=== PATIENT | male | born 1955 | race Hispanic/Latino ===

== ENCOUNTER 2024-06-04 14:23 | Observation (INO) | payer OTHER ==
--- NOTE | 2024-06-04 15:48 | RAD REPORT ---
Procedure: Chest Single View HISTORY: Left arm numbness COMPARISON: 2020 FINDINGS: The lungs appear clear of acute infiltrate. No significant pleural effusion noted. The heart is normal size. IMPRESSION: No acute abnormality is displayed.
[2024-06-04 16:26] LABS: Absolute Eosinophils 0.1 K/uL (0-0.5); Absolute Lymphocytes (CBC) 1.5 K/uL (0.7-4.9); Absolute Monocytes 0.3 K/uL (0.1-1.3); Absolute Neutrophil 2.5 K/uL (1.8-8.0); Eosinophils % 1.4 % (0-4.4); Hematocrit 44.4 % (39.6-49.0); Hemoglobin 14.5 g/dL (13.6-17.9); Lymphocytes % 33.5 % (15.3-44.8); MCH 25.8 pg (27.0-35.0); MCHC 32.6 g/dL (32.0-36.0); MCV 79.1 fL (80-100); MPV 7.8 fL (7.6-11.3); Monocytes % 7.5 % (3.3-12.3); Neutrophils % 56.6 % (41.7-73.7); Nucleated Red Blood Cells % 0.3 % (0-0); Platelets 187 thou/uL (152-406); RBC Red Blood Cell Count 5.61 M/uL (4.33-5.43); Red Cell Distribution Width 17.8 % (12.1-15.2)
[2024-06-04 16:31] LABS: PTT, Activated Partial Thromb 28.3 SECONDS (24.3-36.9); Protime INR 0.98
[2024-06-04 16:37] LABS: Troponin High Sensitivity 9.2 pg/mL (<58.9)
--- NOTE | 2024-06-04 17:26 | RAD REPORT ---
EXAM: CT brain without contrast HISTORY: Left arm numbness COMPARISON: None TECHNIQUE: Multiple contiguous axial images were obtained and a CT of the brain without contrast.. Sagittal and coronal reconstruction performed. Automated exposure control, adjustment of the mA and/or kV according to patient size, and/or iterative reconstruction. Unless otherwise specified, incidental f indings do not require dedicated imaging follow-up FINDINGS: An intracranial bleed is not seen Ventricles are normal caliber No extra-axial fluid collection noted No significant hypodensity within the brain No fluid within the visualized sinuses or mastoids noted. IMPRESSION: No acute intracranial abnormality noted. If the patient's symptoms persist MRI of the brain would be recommended.
--- NOTE | 2024-06-04 17:45 | RAD REPORT ---
EXAMINATION: CTA HEAD CLINICAL INDICATION: Left arm numbness TECHNIQUE: Axial CT images were obtained through the head after 100 cc Isovue-370 intravenous contras t utilizing angiographic protocol with 3D post-processing (maximum intensity projection images, volume rendered images and/or shaded surface rendered images). One or more of the following dose red uction techniques were used: Automated exposure control, adjustment of the mA and/or kV according to patient size, and/or iterative reconstruction. Unless otherwise specified, incidental findings do not require dedicated imaging follow-up. COMPARISON: None FINDINGS: Distal internal carotid, basilar, anterior cerebral, middle cerebral and posterior cerebral arteries do not demonstrate a significant stenosis An aneurysm not noted. No large vessel occlusion IMPRESSION: No acute vascular abnormality displayed
--- NOTE | 2024-06-04 17:49 | RAD REPORT ---
EXAMINATION: Neck Angio CLINICAL INDICATION: Left arm numbness TECHNIQUE: Axial CT images were obtained from the aortic arch to the skull base after intravenous adm inistration of 100 cc Isovue-370 utilizing angiographic protocol. Multiplanar reformats, as well as 3D post-processing (maximum intensity projection images, volume rendered images and/or shaded surface rendered images) were generated and reviewed. One or more of the following dose reduction techniques were used: Automated exposure control, adjustment of the mA and/or kV according to patient size, and/or iterative reconstruction. Unless otherwise specified, incidental findings do not require dedicated imaging follow-up. COMPARISON: No prior exam. FINDINGS: The visualized aortic arch and great vessels do not demonstrate a significant abnormality The common carotid, internal carotid and external carotid arteries appear unremarkable. Right vertebral artery is small. Mild plaque distal vertebral artery. Prominent soft tissue within the mediastinum incompletely evaluated on this exam. Methods for NASCET criteria: Mild stenosis, 0% to 49%; Moderate stenosis 50% to 69%; Severe stenosis, 70% to 99% IMPRESSION: Right vertebral artery is very small. 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 If the patient has had prior imaging this would be helpful comparison. Otherwise, no acute vascular abnormality displayed Prominent soft tissue mediastinum which is incompletely evaluated on this exam. CT scan on another da te with IV contrast would be helpful for further evaluation
--- NOTE | 2024-06-04 18:15 | ER ---
Nurse's Notes [facility] Name: Jose F Monae Age: 68 yrs Sex: Male : 1955 Arrival Date: 06/04/2024 Time: 14:23 Bed 3 Private MD: Diagnosis: Left facial numbness;Left arm numbness Presentation: 06/04 14:27 Chief complaint: Patient states: went to [facility] for few months I have numbness and iw tingling in my fingers and now it's in my chest and numbness on left side of my face today. Coronavirus screen: At this time, the client does not indicate any symptoms associated with coronavirus-19. Ebola Screen: No symptoms or risks identified at this time. Risk Assessment: Do you want to hurt yourself or someone else? Patient reports no desire to harm self or others. 14:27 Method Of Arrival: Wheelchair iw 14:27 Acuity: PABLO 3 iw 16:32 Initial Sepsis Screen: Does the patient meet any 2 criteria? No. Patient's initial tl4 sepsis screen is negative. Does the patient have a suspected source of infection? No. Patient's initial sepsis screen is negative. Onset of symptoms is unknown. Triage Assessment: 16:32 General: Appears in no apparent distress. Behavior is calm, cooperative. Pain: Denies tl4 pain. EENT: No signs and/or symptoms were reported regarding the EENT system. Neuro: Level of Consciousness is awake, alert, obeys commands, Oriented to person, place, time, situation, Director Of Agriculture are equal bilaterally Moves all extremities. Full function Speech is normal, Facial symmetry appears normal, Reports numbness in left hand and left arm. Cardiovascular: Capillary refill < 3 seconds Patient's skin is warm and dry. Respiratory: Airway is patent Respiratory effort is even, unlabored, Respiratory pattern is regular, symmetrical. Historical: - Allergies: 14:28 No Known Allergies; iw - Home Meds: 14:28 pantoprazole 40 mg oral granules delayed release for susp packet daily [Active]; iw - PMHx: 14:28 GERD; iw - PSHx: 14:28 left shoulder; left knee; iw - Immunization history:: Adult Immunizations up to date. - Infectious Disease History:: Denies. - Social history:: Smoking status: Patient denies any tobacco usage or history of. Screenin:17 [facility] ED Fall Risk Assessment (Adult) History of falling in the last 3 months, tm6 including since admission No falls in past 3 months (0 pts) Confusion or Disorientation No (0 pts) Intoxicated or Sedated No (0 pts) Impaired Gait No (0 pts) Mobility Assist Device Used No (0 pt) Altered Elimination No (0 pt) Score/Fall Risk Level 0 - 2 = Low Risk Oriented to surroundings, Maintained a safe environment, Educated pt \T\ family on fall prevention, incl call for assistance when getting out of bed. Abuse screen: Denies threats or abuse. Denies injuries from another. Nutritional screening: No deficits noted. Tuberculosis screening: No symptoms or risk factors identified. 16:31 [place] Swallow Protocol Exclusion Criteria: Exclusion Criteria Result: Proceed Brief tl4 Cognitive Screen What is your name? Normal, Where are you right now? Normal, What year is it? Normal. Oral Mechanism Examination Facial Symmetry: Normal, Motion: Normal, Lip Closure: Normal, Oral Mechanism Result: Normal. 3 oz Water Swallow Challenge: Pt able to drink all water without stopping, coughing, choking or throat clearing: Yes Result: PASS. Assessment: 16:26 General: Appears in no apparent distress. Behavior is calm, cooperative. Pain: Denies tl4 pain. Pain does not radiate. Pain began denies pain. Neuro: Level of Consciousness is awake, alert, obeys commands, Oriented to person, place, time, situation, Reports numbness in left hand and left arm Denies difficulty swallowing, headache. Cardiovascular: Reports numbness in left arm, chest since a couple of weeks. Respiratory: Airway is patent Respiratory effort is even, unlabored, Respiratory pattern is regular, symmetrical, Breath sounds are clear bilaterally. Denies cough, shortness of breath labored breathing. GI: No signs and/or symptoms were reported involving the gastrointestinal system. : No signs and/or symptoms were reported regarding the genitourinary system. EENT: No signs and/or symptoms were reported regarding the EENT system. Derm: No signs and/or symptoms reported regarding the dermatologic system. Musculoskeletal: No signs and/or symptoms reported regarding the musculoskeletal system. 17:22 Reassessment: Patient and/or family updated on plan of care and expected duration. Pain tm6 level reassessed. Patient is alert, oriented x 3, equal unlabored respirations, skin warm/dry/pink. 19:09 Reassessment: Patient and/or family updated on plan of care and expected duration. Pain ha1 level reassessed. Patient is alert, oriented x 3, equal unlabored respirations, skin warm/dry/pink. Patient denies pain at this time. 20:30 Reassessment: Patient appears in no apparent distress at this time. Patient and/or bm8 family updated on plan of care and expected duration. Pain level reassessed. Patient is alert, oriented x 3, equal unlabored respirations, skin warm/dry/pink. Vital Signs: 14:27 BP 139 / 86; Pulse 79; Resp 16; Temp 98; Pulse Ox 96% on R/A; Weight 102.51 kg; Height iw 5 ft. 11 in. ; Pain 0/10; 16:16 BP 132 / 75; Pulse 73; Resp 21; Pulse Ox 97% on R/A; MAP 94 mmHg; tm6 17:21 BP 167 / 95; Pulse 78; Resp 18; Pulse Ox 97% on R/A; MAP 113 mmHg; tm6 19:09 BP 144 / 87; Pulse 72; Resp 17 S; Pulse Ox 98% on R/A; ha1 20:26 BP 150 / 95; Pulse 71; Resp 13; Temp 98; Pulse Ox 98% ; Pain 0/10; bm8 14:27 Body Mass Index 31.52 (102.51 kg, 180.34 cm) iw 14:27 Pain Scale: Adult iw 20:26 Pain Scale: Adult bm8 [place] Coma Score: 20:26 Eye Response: spontaneous(4). Motor Response: obeys commands(6). Verbal Response: bm8 oriented(5). Total: 15. NIH Stroke Scale Scores: 14:39 NIHSS Score: 1 ms3 ED Course: 14:26 Patient arrived in ED. iw 14:28 Triage completed. iw 14:29 Arm band placed on. iw 14:31 Nolberto Cordero DO is Attending Physician. ms3 15:41 CXR XRAY In Process Unspecified. EDMS 15:43 Amparo Xavier, CORINA is Primary Nurse. tm6 16:17 Patient has correct armband on for positive identification. Placed in gown. Bed in low tm6 position. Call light in reach. Side rails up X 1. Provided Education on: use of call garcia. Client placed on continuous cardiac and pulse oximetry monitoring. NIBP monitoring applied. cardiac monitor on. Pulse ox on. NIBP on. Door closed. Noise minimized. Warm blanket given. Pillow given. 16:17 Patient maintains SpO2 saturation greater than 95% on room air. tm6 16:25 Ptt, Activated Sent. tl4 16:25 Protime (+inr) Sent. tl4 16:25 High Sensitivity Troponin Sent. tl4 16:25 CBC with Diff Sent. tl4 16:25 Basic Metabolic Panel Sent. tl4 16:29 No provider procedures requiring assistance completed. Initial lab(s) drawn, by me, tl4 sent to lab. EKG done, by ED staff, reviewed by Nolberto Cordero DO. Inserted saline lock: 20 gauge in left antecubital area, using aseptic technique. Blood collected. Flushed with 10 mL NS. 17:13 CT Neck Angio In Process Unspecified. EDMS 17:14 CT Head Brain wo Cont In Process Unspecified. EDMS 17:14 Head angio In Process Unspecified. EDMS 18:13 Prince Mcbride MD is Hospitalizing Provider. ms3 20:40 Provided Education on: need for admission. bm8 20:40 Patient admitted, IV remains in place. bm8 Administered Medications: No medications were administered Medication: 16:17 VIS not applicable for this client. tm6 Outcome: 18:14 Decision to Hospitalize by Provider. ms3 20:40 Admitted to Tele accompanied by tech, via wheelchair, room 408, bm8 20:40 Condition: stable 20:40 Instructed on the need for admit, Demonstrated understanding of instructions, follow-up care, 21:07 Patient left the ED. bm8 NIH Stroke Scale - NIH Stroke Score Date: 06/04/2024 Time: 14:39 Total Score = 1 10. Dysarthria (speech clarity - read or repeat words) - 0(Normal) 11. Extinction and Inattention (visual/tactile/auditory/spatial/personal) - 0(No abnormality) 1a. Level of Consciousness (LOC) - 0(Alert) 1b. Level of Consciousness (LOC) (Month \T\ Age) - 0(Both) 1c. LOC Commands (Open \T\ Closes Eyes/Neck Pinner) - 0(Both) 2. Best Gaze (Lateral Gaze Paresis) - 0(Normal) 3. Visual Field Loss - 0(No visual loss) 4. Facial Palsy - 0(Normal) 5a. Left Arm: Motor (10-second hold) - 0(No drift) 5b. Right Arm: Motor (10-second hold) - 0(No drift) 6a. Left Leg: Motor (5-second hold - always test supine) - 0(No drift) 6b. Right Leg: Motor (5-second hold - always test supine) - 0(No drift) 7. Limb Ataxia (finger/nose \T\ heel/danielle - test with eyes open) - 1(Present in one limb) 8. Sensory Loss (pinprick arms/legs/face) - 0(Normal) 9. Best Language: Aphasia (description/naming/reading) - 0(No aphasia) Initials: ms3 Signatures: Dispatcher [employer] EDRadha Woodard, RN RN iw Nolberto Cordero, DO ms3 Tamara Brice, RN RN ha1 Amparo Xavier RN CORINA tm6 Glen Bennett RN RN tl4 Yobany Horowitz, RN RN bm8 Corrections: (The following items were deleted from the chart) 17:28 16:29 Inserted saline lock: 20 gauge in right antecubital area, using aseptic tl4 technique. Blood collected. Flushed with 10 mL NS tl4
--- NOTE | 2024-06-04 18:15 | EDPHYS ---
Physician Documentation [facility] Name: Jose F Monae Age: 68 yrs Sex: Male : 1955 Arrival Date: 06/04/2024 Time: 14:23 Bed 3 Private MD: ED Physician Nolberto Cordero HPI: 06/04 15:45 This 68 yrs old Male presents to ER via Wheelchair with complaints of numbness ms3 in chest. 15:45 68-year-old male with past medical history of GERD presents to the emergency department ms3 for tingling and numbness in his left hand for a few months. This sensation has gradually progressed up his arm to his shoulder. In the last two days, the numbness has worsened and spread to his face. He notes that the numbness is intermittent rather than constant. Mr. Monae mentions a family history of strokes on his father's side. He has previously been evaluated by a neurologist, who diagnosed a pinched nerve in the neck and vertebrae. Despite undergoing EMG testing and visiting a massage therapist, his symptoms have not improved. He expresses concern that his condition might be more serious than a pinched nerve.. Historical: - Allergies: 14:28 No Known Allergies; iw - Home Meds: 14:28 pantoprazole 40 mg oral granules delayed release for susp packet daily [Active]; iw - PMHx: 14:28 GERD; iw - PSHx: 14:28 left shoulder; left knee; iw - Immunization history:: Adult Immunizations up to date. - Infectious Disease History:: Denies. - Social history:: Smoking status: Patient denies any tobacco usage or history of. ROS: 15:45 Constitutional: Negative for fever, and chills. Cardiovascular: Negative for chest ms3 pain, and palpitations. Respiratory: Negative for shortness of breath, cough, wheezing, and pleuritic chest pain, Abdomen/GI: Negative for abdominal pain, nausea, vomiting, diarrhea, and constipation, MS/Extremity: Negative for injury and deformity, Skin: Negative for injury, rash, and discoloration, 15:45 Neuro: Positive for Left arm paresthesias, left facial numbness, Exam: 14:39 ECG was reviewed by the Attending Physician. ms3 15:45 Constitutional: This is a well developed, well nourished patient who is awake, alert, ms3 and in no acute distress. Neck: Trachea midline, no cervical lymphadenopathy. Supple, full range of motion without nuchal rigidity, or vertebral point tenderness. No Meningismus. Chest/axilla: Normal chest wall appearance and motion. Nontender with no deformity. Cardiovascular: Regular rate and rhythm with a normal S1 and S2. No gallops, murmurs, or rubs. Normal PMI, no JVD. No pulse deficits. Respiratory: Lungs have equal breath sounds bilaterally, clear to auscultation and percussion. No rales, rhonchi or wheezes noted. No increased work of breathing, no retractions or nasal flaring. Abdomen/GI: Soft, non-tender, with normal bowel sounds. No distension or tympany. No guarding or rebound. No evidence of tenderness throughout. Skin: Warm, dry with normal turgor. Normal color with no rashes, no lesions, and no evidence of cellulitis. MS/ Extremity: Pulses equal, no cyanosis. Neurovascular intact. Full, normal range of motion. Vital Signs: 14:27 BP 139 / 86; Pulse 79; Resp 16; Temp 98; Pulse Ox 96% on R/A; Weight 102.51 kg; Height iw 5 ft. 11 in. ; Pain 0/10; 16:16 BP 132 / 75; Pulse 73; Resp 21; Pulse Ox 97% on R/A; MAP 94 mmHg; tm6 17:21 BP 167 / 95; Pulse 78; Resp 18; Pulse Ox 97% on R/A; MAP 113 mmHg; tm6 19:09 BP 144 / 87; Pulse 72; Resp 17 S; Pulse Ox 98% on R/A; ha1 20:26 BP 150 / 95; Pulse 71; Resp 13; Temp 98; Pulse Ox 98% ; Pain 0/10; bm8 14:27 Body Mass Index 31.52 (102.51 kg, 180.34 cm) iw 14:27 Pain Scale: Adult iw 20:26 Pain Scale: Adult bm8 NIH Stroke Scale Scores: 14:39 NIHSS Score: 1 ms3 [place] Coma Score: 20:26 Eye Response: spontaneous(4). Motor Response: obeys commands(6). Verbal Response: bm8 oriented(5). Total: 15. MDM: 14:46 Medical Screening Exam initiated ms3 18:15 Data reviewed: vital signs, nurses notes, lab test result(s), and as a result, I will ms3 admit patient. Consideration of Admission/Observation Patient was admitted/placed on observation. I considered the following discharge prescriptions or medication management in the emergency department Medications were administered in the Emergency Department. See MAR. Counseling: I had a detailed discussion with the patient and/or guardian regarding the historical points, exam findings, and any diagnostic results supporting the discharge/admit diagnosis, lab results, radiology results, the need for further work-up and treatment in the hospital. ED course: Discussed necessity for observation with patient and family. They understand and agree with plan.. 18:24 Management of patient was discussed with the following: Hospitalist: Dr Peters. ms3 06/04 14:39 Order name: Basic Metabolic Panel; Complete Time: 16:39 ms3 06/04 14:39 Order name: CBC with Diff; Complete Time: 16:34 ms3 06/04 14:39 Order name: High Sensitivity Troponin; Complete Time: 16:39 ms3 06/04 14:39 Order name: Protime (+inr); Complete Time: 16:34 ms3 06/04 14:39 Order name: Ptt, Activated; Complete Time: 16:34 ms3 06/04 18:36 Order name: Magnesium EDMS 06/04 18:36 Order name: Phosphorus EDMS 06/04 18:36 Order name: Basic Metabolic Panel EDMS 06/04 18:36 Order name: Basic Metabolic Panel EDMS 06/04 18:36 Order name: CBC with Automated Diff EDMS 06/04 18:36 Order name: CBC with Automated Diff EDMS 06/04 18:36 Order name: Lipid Profile EDMS 06/04 18:36 Order name: Lipid Profile EDMS 06/04 18:36 Order name: Troponin High Sensitivity EDMS 06/04 18:36 Order name: Troponin High Sensitivity EDMS 06/04 18:36 Order name: Troponin High Sensitivity EDMS 06/04 18:36 Order name: Troponin High Sensitivity EDMS 06/04 14:39 Order name: CT Neck Angio; Complete Time: 17:52 ms3 06/04 14:39 Order name: CT Head Brain wo Cont; Complete Time: 17:52 ms3 06/04 14:39 Order name: CXR XRAY; Complete Time: 16:34 ms3 06/04 14:45 Order name: Head angio; Complete Time: 17:52 EDMS 06/04 18:36 Order name: Echo with Doppler EDMS 06/04 18:39 Order name: Brain Wo Cont EDMS 06/04 18:36 Order name: Physical Therapy Consult EDMS 06/04 18:36 Order name: Speech Therapy Consult EDMS 06/04 18:39 Order name: Occupational Therapy Consult EDMS 06/04 14:39 Order name: Accucheck; Complete Time: 16:40 ms3 06/04 14:39 Order name: Cardiac monitoring; Complete Time: 16:25 ms3 06/04 14:39 Order name: EKG - Nurse/Tech; Complete Time: 16:25 ms3 06/04 14:39 Order name: IV Saline Lock; Complete Time: 16:25 ms3 06/04 14:39 Order name: Labs collected and sent; Complete Time: 16:25 ms3 06/04 14:39 Order name: NPO; Complete Time: 16:25 ms3 06/04 14:39 Order name: O2 Per Protocol; Complete Time: 16:25 ms3 06/04 14:39 Order name: O2 Sat Monitoring; Complete Time: 16:25 ms3 06/04 14:39 Order name: Stroke Swallow Screen; Complete Time: 16:25 ms3 EC:39 Rate is 70 beats/min. Rhythm is regular. QRS [place] is Normal. LA interval is normal. QRS ms3 interval is normal. Clinical impression: Normal ECG. Interpreted by me. Reviewed by me. Administered Medications: No medications were administered Disposition Summary: 06/04/24 18:14 Hospitalization Ordered Notes: Hospitalization Status: Observation ms3 Provider: Prince Rae ms3 Location: Telemetry/MedSurg (observation) ms3 Condition: Stable ms3 Problem: new ms3 Symptoms: are unchanged ms3 Bed/Room Type: Standard ms3 Room Assignment: 408(06/04/24 20:08) rv1 Diagnosis - Left facial numbness ms3 - Left arm numbness ms3 Forms: - Medication Reconciliation Form ms3 - SBAR form ms3 - Leadership Thank You Letter ms3 NIH Stroke Scale - NIH Stroke Score Date: 06/04/2024 Time: 14:39 Total Score = 1 10. Dysarthria (speech clarity - read or repeat words) - 0(Normal) 11. Extinction and Inattention (visual/tactile/auditory/spatial/personal) - 0(No abnormality) 1a. Level of Consciousness (LOC) - 0(Alert) 1b. Level of Consciousness (LOC) (Month \T\ Age) - 0(Both) 1c. LOC Commands (Open \T\ Closes Eyes/Cosmetic Sales Advisor) - 0(Both) 2. Best Gaze (Lateral Gaze Paresis) - 0(Normal) 3. Visual Field Loss - 0(No visual loss) 4. Facial Palsy - 0(Normal) 5a. Left Arm: Motor (10-second hold) - 0(No drift) 5b. Right Arm: Motor (10-second hold) - 0(No drift) 6a. Left Leg: Motor (5-second hold - always test supine) - 0(No drift) 6b. Right Leg: Motor (5-second hold - always test supine) - 0(No drift) 7. Limb Ataxia (finger/nose \T\ heel/danielle - test with eyes open) - 1(Present in one limb) 8. Sensory Loss (pinprick arms/legs/face) - 0(Normal) 9. Best Language: Aphasia (description/naming/reading) - 0(No aphasia) Initials: ms3 Signatures: Dispatcher [employer] EDMS Radha Oliveira RN RN iw Sims, Marcus, DO DO ms3 Susie Lazaro rv1 Corrections: (The following items were deleted from the chart) 14:39 14:39 BASIC METABOLIC PANEL+C.LAB.BRZ ordered. EDMS EDMS 14:39 14:39 CBC+H.LAB.BRZ ordered. EDMS EDMS 14:39 14:39 Troponin High Sensitivity+C.LAB.BRZ ordered. EDMS EDMS 14:39 14:39 PROTIME (+INR)+COAG.LAB.BRZ ordered. EDMS EDMS 14:39 14:39 PTT, ACTIVATED+COAG.LAB.BRZ ordered. EDMS EDMS 14:39 14:39 Neck Angio+CT.RAD.BRZ ordered. EDMS EDMS 14:40 14:40 Head Brain Wo Cont+CT.RAD.BRZ ordered. EDMS EDMS 14:40 14:40 Chest Single View+RAD.RAD.BRZ ordered. EDMS EDMS 18:17 18:14 Cholecystitis, unspecified ms3 ms3 18:17 18:14 Upper abdominal pain, unspecified ms3 ms3 20:08 18:14 ms3 rv1
[2024-06-04] MEDS ORDERED: ONDANSETRON 4 MG/2 ML VIAL IV PRN (18:31)
--- NOTE | 2024-06-04 18:37 | P.HP ---
Certification for Inpatient Patient admitted to: Observation With expected LOS: <2 Midnights Practitioner: I am a practitioner with admitting privileges, knowledge of patient current condition, hospital course, and medical plan of care. Services: Services provided to patient in accordance with Admission requirements found in Title 42 Section 412.3 of the Code of Federal Regulations Patient History Date of Service: 06/04/24 Reason for admission: L sided numbness History of Present Illness: Patient is a 68-year-old male who is being admitted after he presented to the ER with left hand numbness over the past few months. Patient states that symptoms worsened over the past 2 days and it has been progressing proximately to involve his left arm. On the morning of admission, patient developed left facial numbness. He arrived in the ER hemodynamically stable. CT head and CTA brain were unremarkable. Patient is being admitted for CVA workup. Patient has no past medical history. He takes over the counter supplements including turmeric. He denies history of hypertension, diabetes mellitus or coronary artery disease. He also denies a history of CVA in the past. Allergies No Known Allergies Allergy (Verified 08/21/16 11:45) Home Medications: NK [No Home Meds] 08/21/16 Physical Examination - Physical Exam General: Alert, In no apparent distress HEENT: Atraumatic, Normocephalic Respiratory: Clear to auscultation bilaterally, Normal air movement Cardiovascular: No edema, Normal pulses, Regular rate/rhythm, Normal S1 S2 Neurological: Normal speech - Studies Laboratory Data (last 24 hrs) 06/04/24 06/04/24 06/04/24 16:13 16:13 16:13 WBC 4.40 Hgb 14.5 Hct 44.4 Plt Count 187 PT 11.0 INR 0.98 APTT 28.3 Sodium 140 Potassium 4.0 BUN 20 H Creatinine 1.18 Glucose 95 Assessment and Plan - Problems (Diagnosis) (1) CVA (cerebral vascular accident) Current Visit: Yes Status: Acute - Plan Assessment This is a 5-year-old male who is being admitted for stroke workup after presented with worsening left upper extremity numbness and left facial droop. CT head and CTA head and neck were unremarkable. CVArule out Plan: Will admit under observation with telemetry Obtain a formal brain MRI Follow 2D echo and lipid panel Bedside swallow evaluation PT/OT upon discharge Can continue patient on aspirin and atorvastatin - Advance Directives Does patient have a Living Will: No Does patient have a Durable POA for Healthcare: No
[2024-06-04 21:32] VITALS: BMI 31.5
[2024-06-04] MEDS: ATORVASTATIN 80 MG TAB PO SCH (21:35)
[2024-06-04] MEDS: NA CHLORIDE 0.9% 1,000 ML IV SCH (21:36)
[2024-06-04 21:42] VITALS: O2SAT 98
[2024-06-04 21:54] LABS: Magnesium 2.3 mg/dL (1.6-2.4); Phosphorus 2.3 mg/dL (2.5-4.9)
[2024-06-05 06:29] LABS: Absolute Basophils 0.1 K/uL (0-0.5); Absolute Eosinophils 0.1 K/uL (0-0.5); Absolute Lymphocytes (CBC) 1.7 K/uL (0.7-4.9); Absolute Monocytes 0.5 K/uL (0.1-1.3); Absolute Neutrophil 2.7 K/uL (1.8-8.0); Eosinophils % 2.1 % (0-4.4); Hematocrit 42.1 % (39.6-49.0); Hemoglobin 13.8 g/dL (13.6-17.9); Lymphocytes % 33.1 % (15.3-44.8); MCH 25.9 pg (27.0-35.0); MCHC 32.7 g/dL (32.0-36.0); MCV 79.2 fL (80-100); MPV 8.1 fL (7.6-11.3); Monocytes % 9.2 % (3.3-12.3); Neutrophils % 54.6 % (41.7-73.7); Nucleated Red Blood Cells % 0.1 % (0-0); Platelets 194 thou/uL (152-406); RBC Red Blood Cell Count 5.32 M/uL (4.33-5.43); Red Cell Distribution Width 17.5 % (12.1-15.2)
[2024-06-05 06:50] LABS: Anion Gap 8.1 mEq/L (5.0-15.0); Phosphorus 2.5 mg/dL (2.5-4.9); Potassium 4.1 mEq/L (3.5-5.1); Troponin High Sensitivity 9.7 pg/mL (<58.9)
[2024-06-05] MEDS ORDERED: FLU (Fluarix Triv) TS24-25(6MOS UP)/PF 45 MCG/0.5 ML Syringe IM ONE (07:15)
[2024-06-05] MEDS ORDERED: PNEUMOCOCCAL VACCINE 0.5 ML IMVAC ONE (08:00)
[2024-06-05 09:28] VITALS: BP 115/68; TEMP 97.5
[2024-06-05] MEDS: ASPIRIN EC 81 MG TAB PO SCH (10:01)
--- NOTE | 2024-06-05 11:01 | P.PN ---
Subjective Date of Service: 06/05/24 Chief Complaint: L sided numbness Subjective: No new changes (Patient report his left facial numbness resolved but numbness of the left arm is persistent, intermittent, aggravated by elevating left arm, relieved with squeezing and put down his left arm, feels entire left upper extremity feels tingly, but no weakness or muscle cramp.) He was diagnosis with a cervical radiculopathy at [facility], physical therapy was tried but no relief. His symptoms agitated and anxious to get all the test done. He wants to go AMA because his a brain MRI and transthoracic echocardiogram will not be done until Friday at this hospital. He does not take any medication at home except antacid for GERD. Review of Systems Other: Consitutional; fever(-), chills (-), rigor(-), night sweat(-), unintentional weight loss(-) HEENT; epistaxis (-), otorrhea (-), otalgia (-) Respiratory; shortness of breath (-), wheezing (-), cough (-), sputum (-), pleuritic chest pain (-) Cardiovascular; chest pain (-), peripheral edema (-), paroxysmal nocturnal dyspnea (-), orthopnea (-) Gastrointestinal; nausea (-), vomiting (-), abdominal pain (-), diarrhea (-), constipation (-), melena (-), hematochezia (-) Urinary; urinary frequency (-), dysuria (-), urgency (-), flank pain (-), gross hematuria (-) Skin; rash (-), pruritus (-) SHAREPOINT ENGINEER; headache (-), paresthesia (+), numbness (-), paralysis (-), tremor (-), ataxia (-), dysphagia (-), dysarthria (-), diplopia (-) Physical Examination - Vital Signs Temperature: 97.5 F Blood Pressure: 115/68 Pulse: 68 Respirations: 20 Pulse Ox (%): 98 - Physical Exam Other Physical/Emotional Findings: - Physical Exam. General: Not acutely ill looking, in no apparent distress,. HEENT: Normocephalic, atraumatic,. Neck: Supple, without JVD or goiter or thyroid mass. Respiratory: Normal breathing effort, clear to auscultation bilaterally, no crackles no wheezing or rhonchi. Cardiovascular: Regular rate and rhythm, S1, S2 normal, no murmur no gallop. Gastrointestinal: Normal bowel sounds, nondistended, nontender, No ascites, , No masses, no hepatosplenomegaly. Musculoskeletal: No clubbing, No peripheral edema. Integumentary: No rashes. Lymphatics: No axilla or cervical lym phadenopathy. Neurology; alert awake oriented x3, no facial droop. Left upper extremity no rigidity, sensation grossly intact, good hand counter pocket trimmer, no focal neurologic deficit - Studies Laboratory Data (last 24 hrs) 06/04/24 06/04/24 06/04/24 16:13 16:13 16:13 WBC 4.40 Hgb 14.5 Hct 44.4 Plt Count 187 PT 11.0 INR 0.98 APTT 28.3 Sodium 140 Potassium 4.0 BUN 20 H Creatinine 1.18 Glucose 95 Assessment And Plan - Plan All this is 68 years old gentleman with past medical history notable for GERD and cervical radiculopathy who presented to emergency room for evaluation of left hand numbness for months, left facial numbness for 1 day and admitted for 1. Strokelike symptoms Less likely ischemic stroke, his left upper extremity numbness is suspicious for cervical radiculopathy, left facial numbness could be TIA, which resolved cu rrently. Normal CT of the brain, no significant large vessel occlusion by CTA of the neck and head. Troponin normal x 3, hemoglobin A1c 5.3, LDL cholesterol 93, patient need a brain MRI to rule out any ischemic stroke (lacunar infarct in particular) but patient insists on going home because the test will not be done until Friday for the availability at the hospital. He understands the [facility] of medical advice and he has capacity of medical decision. In the meantime we will continue aspirin, atorvastatin, permissive hypertension, hydration with normal saline.
--- NOTE | 2024-06-06 12:43 | EKG ---
Test Date: 2024-06-04 Test Time: 14:29:48 Under Water Assistant: GABBY MEASUREMENT RESULTS: Intervals: Rate: 70 MA: 144 QRSD: 104 QT: 382 QTc: 412 [place]: P: 60 MA: 144 QRS: 57 T: 24 INTERPRETIVE STATEMENTS: Normal sinus rhythm Normal ECG Compared to ECG 08/21/2016 11:46:41 No significant changes Electronically Signed On 06-06-24 12:39:36 DRILLING ENGINEER by Danilo Salguero
== END 2024-06-05 10:30 | disposition left against medical advice (07) ==
LOC: ER 14:23 → ERHOLD 18:31 → 4TH 21:02
PROVIDERS: ADMIT Internal Medicine; ATTEND Internal Medicine
DX: M54.12 Radiculopathy, cervical region (principal); R20.0 Anesthesia of skin; K21.9 Gastro-esophageal reflux disease without esophagitis; Z53.29 Procedure and treatment not carried out because of patient's decision for other reasons
CPT/HCPCS: 93005; 85025 ×2; 80048 ×2; 36415 ×2; 83735; 84100 ×2; 85610; 80061; 82947 ×2; 85730; 83036; 84484 ×3; 70450; 70496; 70498; 71045; 99285; Q9967; J7030; G0378 ×4

== ENCOUNTER 2025-05-06 16:14 | Emergency (ER) | payer OTHER ==
--- NOTE | 2025-05-06 16:56 | RAD REPORT ---
EXAMINATION: US RIGHT LOWER EXTREMITY VENOUS DOPPLER CLINICAL INDICATION: Swelling;Pain RIGHT TECHNIQUE: Complete bilateral duplex sonography of the RIGHT lower extremity veins was performed. The examination included compression for vein patency, color Doppler imaging and flow augmentation in response to distal compression of the distal external iliac, common femoral, femoral, popliteal, tibi al, and great and small saphenous veins. COMPARISON: No prior exam. FINDINGS: Duplex sonography testing of the veins of the RIGHT lower extremity was performed. Thrombus of the ri ght femoral vein to popliteal vein noted. IMPRESSION: Positive for right-sided DVT from the femoral vein to the popliteal vein.
--- NOTE | 2025-05-06 17:49 | RAD REPORT ---
EXAMINATION: XR RIGHT KNEE CLINICAL INDICATION: Male, 69 years old. Pain;Swelling TECHNIQUE: Multiple views of the right knee were obtained. COMPARISON: No prior exam. FINDINGS: Total knee arthroplasty is noted. Small amount of joint fluid may be present. There is no e vidence of hardware loosening or infection. Moderate soft tissue swelling anterior knee soft tissues. No fracture seen.
[2025-05-06 18:30] LABS: Absolute Lymphocytes (CBC) 1.7 K/uL (0.7-4.9); Hematocrit 43.4 % (39.6-49.0); Hemoglobin 14.3 g/dL (13.6-17.9); MCH 26.1 pg (27.0-35.0); MCHC 32.9 g/dL (32.0-36.0); MCV 79.4 fL (80-100); MPV 7.4 fL (7.6-11.3); Nucleated RBC Absolute Count 0.0 (0-0); Nucleated Red Blood Cells % 0.1 % (0-0); RBC Red Blood Cell Count 5.47 M/uL (4.33-5.43); White Blood Count 5.60 thou/uL (4.3-10.9)
[2025-05-06 18:36] LABS: PT Prothrombin Time 11.5 SECONDS (10-13.0); Protime INR 1.02
[2025-05-06 18:57] LABS: Anion Gap 7.8 mEq/L (5.0-15.0); BUN Blood Urea Nitrogen 19.0 mg/dL (7-18); Glucose Level 86.0 mg/dL (74-106); Potassium 3.8 mEq/L (3.5-5.1)
--- NOTE | 2025-05-06 19:07 | EDPHYS ---
Physician Documentation [facility] Name: Jose F Monae Age: 69 yrs Sex: Male : 1955 Arrival Date: 05/06/2025 Time: 16:14 Bed 5 Private MD: ED Physician Jose L Desouza HPI: 05/06 16:30 This 69 yrs old Male presents to ER via Ambulatory with complaints of Leg Pain 7 - swelling. 16:30 69-year-old male with a past medical history of right knee arthroplasty in June presents to the ER for right knee swelling and pain for the past 8 days. The patient saw his PCP who advised that he go to the ER to rule out DVT. Denies any fever or redness.. Historical: - Allergies: 16:30 No Known Allergies; me1 - PMHx: 16:30 GERD; BPH (GERD); me1 - PSHx: 16:30 left knee; left shoulder; right knee (Unknown); me1 - Immunization history:: Adult Immunizations up to date. - Infectious Disease History:: Denies. - Social history:: Smoking status: Patient denies any tobacco usage or history of. ROS: 16:30 Constitutional: Per HPI jh7 Exam: 16:30 Constitutional: This is a well developed, well nourished patient who is awake, alert, jh7 and in no acute distress. Cardiovascular: Regular rate and rhythm with a normal S1 and S2. No gallops, murmurs, or rubs. Normal PMI, no JVD. No pulse deficits. Respiratory: Lungs have equal breath sounds bilaterally, clear to auscultation and percussion. No rales, rhonchi or wheezes noted. No increased work of breathing, no retractions or nasal flaring. Skin: Warm, dry with normal turgor. Normal color with no rashes, no lesions, and no evidence of cellulitis. Neuro: Awake and alert, GCS 15, oriented to person, place, time, and situation. Motor strength 5/5 in all extremities. Sensory grossly intact. Normal gait. 16:30 Musculoskeletal/extremity: Extremities: noted in the Right knee: pain, swelling, tenderness, ROM: intact in all extremities, full active range of motion, Circulation is intact in all extremities. Pulses: are normal with no appreciated deficits, Perfusion: the extremity is normally perfused throughout, pink, warm, with brisk capillary refill, Sensation intact. Vital Signs: 16:28 BP 127 / 72; Pulse 78; Resp 18; Temp 98.3; Pulse Ox 96% ; Weight 106.59 kg; Height 5 me1 ft. 11 in. ; Pain 7/10; 18:00 BP 140 / 90; Pulse 83; Resp 16; Pulse Ox 96% on R/A; db 18:30 BP 145 / 74; Pulse 79; Resp 18 S; Pulse Ox 97% ; ar8 19:33 BP 145 / 90; Pulse 74; Resp 18; Pulse Ox 99% on R/A; mf3 16:28 Body Mass Index 32.78 (106.59 kg, 180.34 cm) me1 16:28 Pain Scale: Adult me1 MDM: 16:24 Medical Screening Exam initiated [facility] 19:05 Differential diagnosis: dislocation, closed fracture, contusion, tendonitis, sprain, 7 DVT, Alejandro's cyst. Data reviewed: vital signs, nurses notes, radiologic studies, plain films. Data reviewed: lab test result(s). I considered the following discharge prescriptions or medication management in the emergency department Medications were administered in the Emergency Department. See MAR. Independent interpretation of the following test(s) in the Emergency Department X-Ray: My interpretation is No fractures. Historians other than the Patient: Spouse/Significant Other: . Counseling: I had a detailed discussion with the patient and/or guardian regarding the historical points, exam findings, and any diagnostic results supporting the discharge/admit diagnosis, lab results, radiology results, the need for outpatient follow up, With PCP for management of DVT, to return to the emergency department if symptoms worsen or persist or if there are any questions or concerns that arise at home. 05/06 16:59 Order name: CBC with Diff; Complete Time: 19:03 [facility] 05/06 16:59 Order name: BMP; Complete Time: 19:03 [facility] 05/06 16:59 Order name: PT-INR; Complete Time: 19:03 [facility] 05/06 16:31 Order name: Knee Right 2 View XRAY; Complete Time: 17:52 [facility] 05/06 16:31 Order name: US Extremity Venous Unilateral Ltd; Complete Time: 16:59 [facility] Administered Medications: No medications were administered Disposition Summary: 05/06/25 19:06 Discharge Ordered Notes: Location: Home [facility] Problem: new [facility] Symptoms: are unchanged [facility] Condition: Stable [facility] Diagnosis - Acute embolism and thrombosis of other specified deep vein of right lower extremity [facility] Followup: [facility] - With: Private Physician - When: 2 - 3 days - Reason: Recheck today's complaints Discharge Instructions: - Discharge Summary Sheet [facility] - Deep Vein Thrombosis [facility] - Venous Thromboembolism Prevention [facility] Forms: - Medication Reconciliation Form [facility] - Patient Portal Instructions [facility] - Leadership Thank You Letter [facility] Prescriptions: - Eliquis DVT-PE Treat 30D Start 5 mg (74 tabs) Oral Tablet, Dose Pack - take 5 milligram ORAL route per package directions; 74 tablet; Refills: 0, [facility] Product Selection Permitted Addendum: 05/11/2025 06:55 Co-signature as Attending Physician, Jose L Desouza MD I agree with the assessment and c olmedo plan of care. Signatures: Dispatcher [employer] EDJose L Albert MD MD cha Hadash, Jennifer, UX INFORMATION ARCHITECT [place] [id number] Padmini Choi, RN RN me1 Mirella Mendenhall RN RN mf3 Corrections: (The following items were deleted from the chart) 05/06 17:00 17:00 CBC+H.LAB.BRZ ordered. EDDC EDMS 17:00 17:00 BASIC METABOLIC PANEL+C.LAB.BRZ ordered. EDMS EDMS 17:00 17:00 PROTIME (+INR)+COAG.LAB.BRZ ordered. EDDC EDMS
--- NOTE | 2025-05-06 19:07 | ER ---
Nurse's Notes [facility] Name: Jose F Monae Age: 69 yrs Sex: Male : 1955 Arrival Date: 05/06/2025 Time: 16:14 Bed 5 Private MD: Diagnosis: Acute embolism and thrombosis of other specified deep vein of right lower extremity Presentation: 05/06 16:28 Chief complaint: Patient states: R knee replacement last June. Last , me1 04/28/25, right leg started swelling and hasnt gone down. Pain to medial posterior knee 02/03. Sent by [facility] to r/o blood clot. Coronavirus screen: Vaccine status: Patient reports receiving the 2nd dose of the covid vaccine. Ebola Screen: No symptoms or risks identified at this time. Initial Sepsis Screen: Does the patient meet any 2 criteria? No. Patient's initial sepsis screen is negative. Does the patient have a suspected source of infection? No. Patient's initial sepsis screen is negative. Risk Assessment: Do you want to hurt yourself or someone else? Patient reports no desire to harm self or others. Onset of symptoms was April 28, 2025. 16:28 Method Of Arrival: Ambulatory nd1 16:28 Acuity: PABLO 3 me1 Triage Assessment: 19:34 Pain: Denies pain. mf3 Historical: - Allergies: 16:30 No Known Allergies; me1 - PMHx: 16:30 GERD; BPH (GERD); me1 - PSHx: 16:30 left knee; left shoulder; right knee (Unknown); me1 - Immunization history:: Adult Immunizations up to date. - Infectious Disease History:: Denies. - Social history:: Smoking status: Patient denies any tobacco usage or history of. Screenin:29 [facility] ED Fall Risk Assessment (Adult) History of falling in the last 3 months, db including since admission No falls in past 3 months (0 pts) Confusion or Disorientation No (0 pts) Intoxicated or Sedated No (0 pts) Impaired Gait No (0 pts) Mobility Assist Device Used No (0 pt) Altered Elimination No (0 pt) Score/Fall Risk Level 0 - 2 = Low Risk Oriented to surroundings, Maintained a safe environment. Abuse screen: Denies threats or abuse. Denies injuries from another. Nutritional screening: No deficits noted. Tuberculosis screening: No symptoms or risk factors identified. Assessment: 16:35 Reassessment: Patient appears in no apparent distress at this time. Patient and/or db family updated on plan of care and expected duration. Pain level reassessed. Patient is alert, oriented x 3, equal unlabored respirations, skin warm/dry/pink. General: Appears in no apparent distress. comfortable, Behavior is calm, cooperative. Neuro: Level of Consciousness is awake, alert, obeys commands, Oriented to person, place, time, situation. Respiratory: Airway is patent Respiratory effort is even, unlabored, Respiratory pattern is regular, symmetrical. 18:29 Reassessment: Patient appears in no apparent distress at this time. Patient and/or db family updated on plan of care and expected duration. Pain level reassessed. Patient is alert, oriented x 3, equal unlabored respirations, skin warm/dry/pink. 19:25 Reassessment: Patient and/or family updated on plan of care and expected duration. Pain mf3 level reassessed. Patient is alert, oriented x 3, equal unlabored respirations, skin warm/dry/pink. Patient denies pain at this time. Vital Signs: 16:28 BP 127 / 72; Pulse 78; Resp 18; Temp 98.3; Pulse Ox 96% ; Weight 106.59 kg; Height 5 me1 ft. 11 in. ; Pain 7/10; 18:00 BP 140 / 90; Pulse 83; Resp 16; Pulse Ox 96% on R/A; db 18:30 BP 145 / 74; Pulse 79; Resp 18 S; Pulse Ox 97% ; ar8 19:33 BP 145 / 90; Pulse 74; Resp 18; Pulse Ox 99% on R/A; mf3 16:28 Body Mass Index 32.78 (106.59 kg, 180.34 cm) me1 16:28 Pain Scale: Adult me1 ED Course: 16:18 Patient arrived in ED. al6 16:24 [facility]aseñor [facility] jh7 16:24 Jose L Desouza MD is Attending Physician. jh7 16:25 Clotilde Vaz, CORINA is Primary Nurse. db 16:30 Triage completed. me1 16:30 Arm band placed on Patient placed in an exam room. me1 16:49 US Extremity Venous Unilateral Ltd In Process Unspecified. EDMS 17:29 Knee Right 2 View XRAY In Process Unspecified. EDMS 18:29 Patient has correct armband on for positive identification. Bed in low position. Call db light in reach. Side rails up X 1. Provided Education on: . Pulse ox on. NIBP on. Warm blanket given. 18:58 Inserted saline lock: 22 gauge in right. db 19:34 Patient did not have IV access during this emergency room visit. mf3 19:34 No provider procedures requiring assistance completed. mf3 Administered Medications: No medications were administered Medication: 18:29 VIS not applicable for this client. db Outcome: 19:06 Discharge ordered by . [facility] 19:35 Discharged to home ambulatory, with family, [facility] 19:35 Condition: stable 19:35 Discharge instructions given to patient, family, Instructed on discharge instructions, follow up and referral plans. Demonstrated understanding of instructions, follow-up care, medications, Prescriptions given X 1, 19:35 Patient left the ED. 3 Signatures: Dispatcher [employer] EDJenn Menjivar, CERAMIC TILE MECHANIC CERAMIC TILE MECHANIC 7 Clotilde Vaz, RN RN db Padmini Choi, RN RN me1 Adamaris Potter Andrea RN RN ar8 Mirella Mendenhall, RN RN 3
[2025-05-06 20:03] VITALS: TEMP 98.3
[2025-05-06 20:06] VITALS: BP 145/90; O2SAT 99
== END 2025-05-06 19:35 | disposition home or self-care (01) ==
LOC: ER 16:14
DX: I82.491 Acute embolism and thrombosis of other specified deep vein of right lower extremity (principal)
CPT/HCPCS: 36415; 80048; 85025; 85610; 93971; 99284